=== PATIENT | female | born 1970 | race African-American/Black ===

== ENCOUNTER 2017-12-05 19:30 | Emergency (ER) | payer BC ==
[~2017-12-05] VITALS: Ht 167.6 cm; Wt 71.2 kg
[2017-12-05] MEDS ORDERED: ONDANSETRON HCL INJ 2 MG/ML VIAL IV STA (19:47)
[2017-12-05] MEDS ORDERED: FAMOTIDINE 20 MG/2 ML VIAL IV STA (19:47)
[2017-12-05] MEDS ORDERED: SODIUM CHLORIDE 0.9% 1000ML 1,000 ML IV ONE (20:00)
== END 2017-12-05 21:30 | disposition home or self-care (01) ==
LOC: FSED 19:30
DX: R11.2 Nausea with vomiting, unspecified (principal); R10.9 Unspecified abdominal pain; B34.9 Viral infection, unspecified
CPT/HCPCS: 80053; 80076; 81003; 85025; 99283; J2405; J7030

== ENCOUNTER 2018-03-08 23:23 | Emergency (ER) | payer SELFPAY ==
[~2018-03-08] VITALS: Ht 167.6 cm; Wt 68.0 kg
[2018-03-09] MEDS ORDERED: IBUPROFEN 600 MG TAB PO STA (00:06)
[2018-03-09 00:28] VITALS: BP 159/80
--- NOTE | 2018-03-09 01:09 | Diagnostic Imaging Report ---
SHOULDER 2+VW LT -HOPD HISTORY: Left shoulder pain.. COMPARISON: None available. FINDINGS: Bones: No acute displaced fracture. Osseous alignment is within normal limits. Joints: The joint spaces are well-maintained. Soft tissues: The soft tissues appear unremarkable. IMPRESSION: No acute radiographic abnormality. Signed by: DR. Glen Heard MD on 03/09/2018 1:06 AM
== END 2018-03-09 00:30 | disposition home or self-care (01) ==
LOC: FSED 23:23
DX: M25.512 Pain in left shoulder (principal); S43.422A Sprain of left rotator cuff capsule, initial encounter; Y04.2XXA Assault by strike against or bumped into by another person, initial encounter; Y99.0 Civilian activity done for income or pay; R11.2 Nausea with vomiting, unspecified; B34.9 Viral infection, unspecified; F17.210 Nicotine dependence, cigarettes, uncomplicated
CPT/HCPCS: 87400; 99283